=== PATIENT | female | born 1985 | race Caucasian/White ===

== ENCOUNTER 2019-06-27 14:13 | Emergency (ER) | payer OTHER ==
[~2019-06-27] VITALS: Ht 170.2 cm; Wt 57.2 kg
--- NOTE | 2019-06-27 15:21 | RAD ---
CHEST PA LATERAL History: Palpitations, chest pain Comparison: None. Findings: The cardiomediastinal silhouette is normal. Pulmonary vasculature is normal. The lungs are clear. No pleural effusion or pneumothorax is seen. There is no acute bone abnormality. Levoconvex scoliosis of the low thoracic and upper lumbar spine noted. IMPRESSION: No acute cardiopulmonary process. Scoliosis. Electronically signed by: Jesus Lees MD (06/27/2019 3:18 PM) [facility]
--- NOTE | 2019-06-27 15:25 | EKG ---
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
--- NOTE | 2019-06-27 15:48 | PHYS DOC ---
Past History Past Medical History: Anxiety Smoking: Non-smoker Alcohol Use: None Drug Use: None Adult General Chief Complaint Chief Complaint: CHEST PAIN HPI HPI Patient is a 34-year-old female who presented to ER today for evaluation of heart palpitation with chest pressure started yesterday. Patient called her doctor today to get an appointment to see her doctor, she is scheduled to see her doctor tomorrow morning, however she continued to have episodes heart palpitation so she came in here for evaluation. Patient denies any abdominal pain, no nausea vomiting, no trouble breathing, no cough or fever. Patient is not a smoker, she is not on any control medication, no recent operation. Patient had no previous history of heart disease, no previous history of blood clot disorder or diabetes. Patient has no family history of blood clot disorder or heart disease. She denies any trouble breathing. All other ROS is negative unless otherwise noted in HPI Review of Systems Review of Systems See above Allergies Allergies Allergies Coded Allergies Type Severity Reaction Last Updated Verified No Known Drug Allergies 06/27/19 No Physical Exam Physical Exam See above Constitutional: Well developed, well nourished, no acute distress, non-toxic appearance. [] HENT: Normocephalic, atraumatic, bilateral external ears normal, oropharynx moist, no oral exudates, nose normal. [] Eyes: PERRLA, EOMI, conjunctiva normal, no discharge. [] Neck: Normal range of motion, no tenderness, supple, no stridor. [] Cardiovascular:Heart rate regular rhythm, no murmur [] Lungs & Thorax: Bilateral breath sounds clear to auscultation [] Abdomen: Bowel sounds normal, soft, no tenderness, no masses, no pulsatile mas ses. [] Skin: Warm, dry, no erythema, no rash. [] Back: No tenderness, no CVA tenderness. [] Extremities: No tenderness, no cyanosis, no clubbing, ROM intact, no edema. No calf muscle tenderness, no swelling, no evidence of DVT. Neurologic: Alert and oriented X 3, normal motor function, normal sensory function, no focal deficits noted. [] Psychologic: Affect normal, judgement normal, mood normal. [] Current Patient Data Vital Signs Vital Signs Date Time Temp Pulse Resp B/P (MAP) Pulse Ox O2 Delivery O2 Flow Rate FiO2 06/27/19 14:24 98.1 83 16 141/103 (116) 98 Room Air EKG EKG EKG was done at 304 pm, rate of 72 beats per minutes, normal sinus rhythm, no ST elevation. Radiology/Procedures Radiology/Procedures [][address] [address] IMAGING REPORT Signed PATIENT: DANA BRANNON ACCOUNT: [id number] : 1985 LOCATION: ER AGE: 34 SEX: F EXAM STATUS: REG ER ORD. PHYSICIAN: SIRENA CASANOVA DO REASON: CHEST PAIN, HEART PALPITATION PROCEDURE: CHEST PA & LATERAL CHEST PA LATERAL History: Palpitations, chest pain Comparison: None. Findings: The cardiomediastinal silhouette is normal. Pulmonary vasculature is normal. The lungs are clear. No pleural effusion or pneumothorax is seen. There is no acute bone abnormality. Levoconvex scoliosis of the low thoracic and upper lumbar spine noted. IMPRESSION: No acute cardiopulmonary process. Scoliosis. Electronically signed by: Jesus Contreras MD (06/27/2019 3:18 PM) [facility] DICTATED AND SIGNED BY: JESUS CONTRERAS MD DATE: 06/27/19 1518 CC: YAYA FELIX MD; SIRENA CASANOVA DO ~ Course & Med Decision Making Course & Med Decision Making Pertinent Labs and Imaging studies reviewed. (See chart for details) Patient is a 34-year-old female with no risk factors for blood clot disorder or coronary artery disease, presenting with heart palpitation and chest pressure, chest x-ray and EKG were normal. Patient has an appointment with her doctor tomorrow morning, further evaluation for this symptom can be done in her doctor clinic tomorrow then. Patient is amenable with plan of care. Dragon Disclaimer Dragon Disclaimer This electronic medical record was generated, in whole or in part, using a voice recognition dictation system. Departure Departure: Impression: Primary Impression: Palpitation Disposition: HOME/RESIDENCE PRIOR TO ADM Condition: STABLE Referrals: YAYA FELIX MD (PCP) follow up with your doctor as scheduled in am Patient Instructions: Palpitations SIRENA CASANOVA DO Jun 27, 2019 15:48
[2019-06-27 15:59] VITALS: BP 141/103
== END 2019-06-27 15:56 | disposition home or self-care (01) ==
LOC: ER 14:15
DX: R00.2 Palpitations (principal); R07.89 Other chest pain; F41.9 Anxiety disorder, unspecified
CPT/HCPCS: 71046; 93005; 99284